=== PATIENT | female | born 1970 | race Caucasian/White ===

== ENCOUNTER 2017-09-18 12:40 | Emergency (ER) | payer BC ==
[~2017-09-18] VITALS: Ht 162.6 cm; Wt 83.0 kg
[~2017-09-18 12:40] MED LIST: PROTONIX40 MG PO; Percocet 5/325,Endoc PO; SIMVASTATIN40 MG PO; Vicodin,Norco 5/325 PO; WELLBUTRIN100 MG PO
[2017-09-18 14:25] LABS: HEMATOCRIT 39.7 % (36.0-46.0); HEMOGLOBIN 13.3 G/DL (11.9-15.5); MCH 30.2 PG (29.0-34.0); MCHC 33.5 G/DL (30.0-36.0); MCV 90.2 FL (83-99); PLATELET COUNT 289 K/uL (156-360); RBC DIS.WIDTH-CV 11.9 % (11.8-14.6); RBC DIS.WIDTH-SD 39.2 % (39-53); WHITE BLOOD COUNT 7.9 K/uL (4.1-10.2)
[2017-09-18 14:35] LABS: ALBUMIN 4.1 g/dL (3.2-4.8); CHLORIDE 107 mEq/L (99-109); POTASSIUM 4.5 mEq/L (3.7-5.4); SODIUM 139 mEq/L (136-147)
[2017-09-18 14:37] LABS: GLUCOSE 106 mg/dL (70-99)
[2017-09-18 14:38] LABS: TOTAL PROTEIN 6.9 g/dL (6.4-8.3)
[2017-09-18 14:39] LABS: TOTAL BILIRUBIN 0.2 mg/dL (0.0-1.0)
[2017-09-18 14:41] LABS: ALKALINE PHOSPHATASE 97 IU/L (3-129); GFR ESTIMATE (CALCULATED) > 59 mL/min/
[2017-09-18] MEDS ORDERED: BACTRIM,SEPT1 TABLET PO (14:41)
[2017-09-18 14:42] LABS: UREA NITROGEN (BUN) 11 mg/dL (9-23)
[2017-09-18 14:43] LABS: AST (GOT) 24 IU/L (2-34)
[2017-09-18 14:44] LABS: ALT (GPT) 22 IU/L (3-49)
[2017-09-18] MEDS ORDERED: PRILOSEC20 MG PO (14:44)
[2017-09-18] MEDS ORDERED: AZO STANDARD97.5 MG PO (14:46)
[2017-09-18 14:50] LABS: QUANTITATIVE HCG < 4.0 MIU/ML
[2017-09-18 15:01] LABS: APPEARANCE CLEAR ((CLEAR)); BILIRUBIN NEGATIVE; BLOOD NEGATIVE; COLOR AMBER ((YELLOW)); GLUCOSE (STRIP) NEGATIVE; KETONES NEGATIVE; LEUKOCYTES TRACE; NITRITE POSITIVE; PROTEIN (STRIP) NEGATIVE; SPECIFIC GRAVITY 1.016 (1.000-1.030)
[2017-09-18 15:11] LABS: BACTERIA RARE /HPF; EPITHELIAL CELLS 1+ /HPF; MUCUS TRACE /LPF; RED BLOOD CELLS 0-5 /HPF (0-5); UCUL ADDED? YES; WHITE BLOOD CELLS TNTC /HPF (0-5)
[2017-09-18] MEDS ORDERED: ZOFRAN ODT4 MG PO (17:54)
[2017-09-18] MEDS ORDERED: MOTRIN800 MG PO (17:54)
[2017-09-18] MEDS ORDERED: KEFLEX500 MG PO (17:54)
[2017-09-18 18:27] VITALS: BP 135/78
== END 2017-09-18 18:28 | disposition home or self-care (01) ==
LOC: EXP 12:40 → EME 12:40 → EXP 18:28
DX: N39.0 Urinary tract infection, site not specified (principal); D25.9 Leiomyoma of uterus, unspecified; R10.9 Unspecified abdominal pain; F32.9 Major depressive disorder, single episode, unspecified; E78.5 Hyperlipidemia, unspecified; K21.9 Gastro-esophageal reflux disease without esophagitis
CPT/HCPCS: 74176; 80053; 81003; 84702; 85027; 87077; 87086; 87186; 99281; 99283